=== PATIENT | male | born 1960 | race African-American/Black ===

== ENCOUNTER 2016-11-28 05:17 | Inpatient (IN) ==
[2016-11-19 09:29] LABS: Basophils # 0.1 10*3/uL (0.0-0.2); Basophils % 1.1 % (0.0-0.8); Eosinophils # 0.1 10*3/uL (0.0-0.87); Eosinophils % 1.2 % (0.00-10.9); Hematocrit 41.2 VOL% (42.0-52.0); Immature Granulocytes % 0.5 %; Immature Granulocytes Absolute 0.04 #; Lymphocytes # 2.9 10*3/uL (1.4-4.0); Lymphocytes % 36.7 % (21.2-54.2); Mean Corpuscular Hemoglobin 25 PG (27-34); Mean Corpuscular Volume 73.6 FL (87-102); Mean Platelet Volume 10.3 FL (9.6-12.0); Monocytes # 0.7 10*3/uL (0.11-0.8); Neutrophils # 4.1 10*3/uL (1.4-7.4); Neutrophils % 51.5 % (38.7-73.9); Platelet Count 198 T/CUMM (130-400); Red Cell Distribution Width 15.1 % (9.3-17.3)
--- NOTE | 2016-11-19 09:41 | EKG Report ---
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
[2016-11-19 09:56] LABS: Osmolality,Calculated 278.3 MOS/KG (273-304); Potassium 4.1 MMOL/L (3.5-5.1)
[2016-11-19 10:19] LABS: Amorphous Crystals,Urine Occasional /HPF (Few); Apearance,Urine CLEAR (Clear); Bilirubin,Urine Negative (Negative); Blood, Urine Negative (Negative); Glucose,Urine (UA) Negative (Negative); Ketones,Urine Negative (Negative); Mucus,Urine Occasional /LPF (Occasional); Nitrite,Urine Negative (Negative); Protein,Urine Negative; RBC,Urine 1 /HPF (0-4); Squamous Epithelial Cell,Urine Occasional /HPF (0-10); Urine Color Yellow (Yellow); Urine Specific Gravity 1.015 (1.001-1.035); Urine Urobilinogen < 2.0 EU/DL (0.2-1.0); WBC,Urine 1 /HPF (0-6)
[2016-11-28] MEDS ORDERED: FAMOTIDINE 20 MG TABLET PO ONE (06:00)
[2016-11-28] MEDS ORDERED: LORazepam 1 MG TABLET PO ONE (06:00)
[2016-11-28] MEDS ORDERED: SODIUM PHOSPHATE ENEMA 133 ML BOTTLE RECTAL ONE ×2 (06:05→07:00)
[2016-11-28] MEDS ORDERED: cefTRIAXone 1,000 MG VIAL ONE (06:05)
[2016-11-28] MEDS ORDERED: SODIUM CHLORIDE 0.9% 100 ML IV ONE (06:05)
[2016-11-28] MEDS ORDERED: ALVIMOPAN 12 MG CAPSULE ONE (06:05)
[2016-11-28] MEDS: LACTATED RINGERS 1,000 ML IV SCH ×3 (06:40→12:01)
[2016-11-28] MEDS ORDERED: LORazepam 1 MG TABLET ONE (06:42)
[2016-11-28] MEDS ORDERED: FAMOTIDINE 20 MG TABLET ONE (06:42)
[2016-11-28] MEDS ORDERED: cefTRIAXone 1,000 MG in SODIUM CHLORIDE 0.9% 100 ML IV ONE (07:00)
[2016-11-28] MEDS ORDERED: ALVIMOPAN 12 MG CAPSULE PO ONE (07:00)
[2016-11-28] MEDS ORDERED: LIDOCAINE 100 MG/5 ML SYRINGE ONE (07:05)
[2016-11-28] MEDS ORDERED: ONDANSETRON 4 MG/2 ML VIAL ONE ×2 (07:05→11:38)
[2016-11-28] MEDS ORDERED: ROCURONIUM 100 MG/10 ML VIAL IV ONE (07:05)
[2016-11-28] MEDS ORDERED: PROPOFOL 200 MG/20 ML VIAL IV ONE (07:05)
[2016-11-28 08:07] LABS: Apearance,Urine CLEAR (Clear); Bilirubin,Urine Negative (Negative); Blood, Urine Moderate mg/dL (Negative); Glucose,Urine (UA) Negative (Negative); Ketones,Urine Negative (Negative); Nitrite,Urine Negative (Negative); Protein,Urine Negative; RBC,Urine 13 /HPF (0-4); Urine Color Straw (Yellow); Urine Specific Gravity 1.003 (1.001-1.035); Urine Urobilinogen < 2.0 EU/DL (0.2-1.0); WBC,Urine 4 /HPF (0-6)
[2016-11-28] MEDS ORDERED: ONDANSETRON 4 MG/2 ML VIAL IV PRN ×2 (10:43→11:42)
--- NOTE | 2016-11-28 10:57 | Operative Note ---
Date of procedure: 11/28/16 Pre-op diagnosis: Prostate cancer Post-op diagnosis: same Procedure: 56-year-old gentleman with moderate volume intermediate risk carcinoma prostate. He is elected to undergo robotic radical prostatectomy. This procedure was explained at length and in detail. Risks, complications, outcomes , sequelae, prognosis and alternative therapy was discussed. Patient understood this and agreed to proceed. Patient is brought to the operative suite placed in table the securing padding and given a general endotracheal anesthetic. He is then secured to the table in the usual fashion and placed in low lithotomy position. He is then prepared and draped in the usual sterile manner. 22 Divehi Reynoso was inserted and the bladder left to gravity drainage. Inflations the patient is then placed in Trendelenburg position. Small incision great above the umbilicus. Towel clips were used to tent the abdomen up and a Veress needle was used to huang the abdominal wall. This was confirmed with the to click and saline drop test. Pneumoperitoneum was obtained. After about 2-1/2-3 L the Veress needle was then removed. 8 mm camera trocar was then placed and the camera was inserted. And inspection the intra-abdominal contents revealed no bowel injury or vascular injury from access. Another 8 mm port is placed about 8-10 cm lateral on both sides. These were done under direct vision. And another was placed lateral to the third arm on the right for fourth arm. That again was placed under direct vision. Robot was then docked I broke scrub and went to the console. [place] bipolar forceps in the left and monopolar scissors in the right a posterior approach was begun. Very small pelvis. Very tight cul-de-sac. Been incision was made in the anterior cul-de-sac and dissection was down to the vas deferens. These were clipped and divided. The seminal vesicles were divided out. Care was taken using minimal cautery as this is a nerve sparing technique. A window in Denonvilliers fascia was then created. Attention was then directed to creating the bladder flap. Incision is created lateral to the median umbilical ligaments on both sides and the ligaments were then divided and cauterized. The bladder flap was developed sharply and bluntly. Endopelvic fascia was identified. There was a large amount of levator perforating veins that were fairly large size on the patient's right side these were teased out. And lightly cauterized with bipolar. Left side had some veins but not near what was done on the right side. Puboprostatic ligaments were divided. The notch between the prostate and urethra was identified. A #1 Vicryl was used to ligate the dorsal venous complex. Attention was then directed the bladder neck. With bunching of the tissue in the midline and light traction on the Reynoso the junction was identified. This was initially incised with cautery and then using sharp dissection this was done down to the bladder neck. Longitudinal fibers were identified and the bladder neck was entered and drained. Reynoso catheter was deflated and pulled back slightly. Bladder neck was slightly open in the posterior bladder neck was then incised. The fourth arm was then used to pull up the prostate with progress. Remaining attachments anteriorly were taken down. Pedicles were ligated with hemoclips and divided. Dissection was continued posteriorly where the seminal vesicles and vas deferens were then pulled out. On both sides the lateral prostatic fascia of the prostate was incised. And then the nerve bundles were then dissected off the prostate. On the right side the fascia was very thin and the base was more adherent so at this point I elected that it would be almost impossible to spare the nerves of the nerve was taken. On the right side the vessel sealer was then used to take down the pedicle down to the apex. On the left side the pedicles were taken out with clips and divided no nerve was spared. Posterior prostate was dissected off the rectum sharply without difficulty. Attention was directed to the apex. With light traction on the prostate dorsal venous complex incised. Dissection was continued to the urethra again no nerve on the right but on the left the nerve was out laterally and the urethra was incised. The Reynoso cath was pulled back and posterior urethra was incised. The remaining apical attachments were divided sharply. Prostate and seminal vesicles attached were then placed in a specimen bag. Attention was directed to the nose. The adventitia the external iliac vein was entered jeffy tissue swept down the obturator fossa. The obturator nerve was identified and kept in view at all times and not injured. Jeffy package was scant on the right side we had a few more nodes on the left but these were then gently avulsed out with light traction. No cautery was necessary. The nerve was again seen on both sides not injured. These were sent separately for pathologic examination. A 2-0 Vicryl was used approximate the posterior urethra to the posterior bladder neck. The anastomosis was then provided with a running barbed 3-0 suture. Begun at 6 o'clock position outside in and running up from the 5 to 1: 00 and 7 to 11 o'clock position. A new to silicone Reynoso was then inserted and 12 these were placed in the balloon. Catheter was irrigated and this was a watertight anastomosis. The suture was then tied securely the pneumoperitoneum was then dropped to 0 and there was no significant bleeding. The robot was undocked. Trochars were removed. I re-scrubbed came to the field. The assistance port was incised slightly to facilitate remove the specimen. The muscles were divided with cautery. The specimen bag was removed to contain his prostate and seminal vesicles. This wound was irrigated hemostasis checked with cautery and this wound was closed with running 0 Monocryl. All wounds were irrigated and drained and hemostasis was then checked with cautery and the skin was closed with skin clips on all wounds. Reynoso catheter was left to gravity drainage secured to the upper thigh. Sterile dressings were placed on the wound. Patient tolerated this procedure extremely well was awakened general anesthesia and sent to the recovery room in stable condition. All sponge, needle and instrument counts correct 2. Implants: 22 silicone Reynoso Anesthesia: GETA Surgeon / Physician: Mani Barrera Estimated blood loss: other (150cc) Specimens: other (Prostate with seminal vesicles, bilateral obturator nodes) Condition: stable Disposition: PACU Results - Labs CBC & BMP: 11/19/16 09:23 11/19/16 09:23 Discharge Plan - Discharge Medications No Action Losartan [Cozaar] 50 mg PO DAILY - Follow Up or Referral - Forms/Instructions
[2016-11-28] MEDS ORDERED: MEPERIDINE 25 MG/1 ML VIAL ONE (11:00)
--- NOTE | 2016-11-28 11:09 | Anesthesia Post-Op ---
Anesthesia Post OP - Post Ansesthetic Evaluation Patient seen in post op: Yes Resp: within normal limits CV: within normal limits Mental: within normal limits Temp: within normal limits Wlhj-Nv-Rmvhiwmxa: within normal limits Nausea and Vomiting: within normal limits Pain: within normal limits
[2016-11-28] MEDS ORDERED: SEVOFLURANE 1 UNIT/15 MINUTE INH ONE (11:12)
[2016-11-28] MEDS ORDERED: fentaNYL 100 MCG/2 ML VIAL ONE (11:12)
[2016-11-28] MEDS ORDERED: LACTATED RINGERS 1,000 ML IV ONE (11:12)
[2016-11-28] MEDS ORDERED: MIDAZOLAM 2 MG/2 ML VIAL ONE (11:12)
[2016-11-28] MEDS ORDERED: ACETAMINOPHEN 1,000 MG/100 ML VIAL IV ONE (11:13)
[2016-11-28] MEDS ORDERED: HYDROmorphone PCA 30 MG/30 ML SYRINGE IV ONE (11:22)
[2016-11-28] MEDS: HYDROmorphone 2 MG/1 ML VIAL IV PRN ×2 (11:35→11:50)
[2016-11-28] MEDS ORDERED: HYDROmorphone 2 MG/1 ML VIAL ONE (11:38)
[2016-11-28] MEDS: HYDROmorphone PCA 30 MG/30 ML SYRINGE IV SCH (11:40)
[2016-11-28] MEDS ORDERED: ALBUTEROL/IPRATROPIUM 3 ML NEB RESP TX ONE (11:43)
--- NOTE | 2016-11-28 15:19 | Pulmonology Progress Note ---
Pulmonary - PN: Subj Interval history: The patient is a 56-year-old black man that came in today and had a robotic radical prostatectomy. Patient had a history of hypertension and is a smoker and has had problems with substance abuse in the past. He was fairly stable prior to surgery and came in today. He had no problems with anesthesia and he is doing well postop. He is arousable and looks reasonably comfortable now. He is not having any respiratory difficulties. His blood pressure and heart rate have been stable. Exam (Progress Note) - Constitutional Vitals: Period Temp Pulse Resp BP Sys/Bahena Pulse Ox Last 24 Hr 97.1 F-98.0 F 58-86 16-20 147-188/82-98 96-100 General appearance: normal weight, no acute distress, other (He looks comfortable lying in bed.) - Head Head exam: Present: normal inspection, normocephalic - Eye Eye exam: Present: EOMI. Absent: scleral icterus Pupils: Present: KAITLIN - ENT ENT exam: Present: normal exam - Neck Neck exam: Present: normal inspection. Absent: lymphadenopathy, thyromegaly - Respiratory Respiratory exam: Present: clear to auscultation bilaterally. Absent: wheezes - Cardiovascular Cardiovascular exam: Present: regular rate and rhythm. Absent: gallop, systolic murmur - GI/Abdominal GI/Abdominal exam: Present: normal bowel sounds, tenderness (He is tender in the lower abdomen), soft. Absent: organomegaly - Extremities Exam Extremities exam: Absent: calf tenderness, edema - Neurological Exam Neurological exam: Present: alert, oriented X3 - Psychiatric Psychiatric exam: Present: normal affect - Skin Skin exam: Present: warm, dry Results - Labs CBC & BMP: 11/19/16 09:23 11/19/16 09:23 Assessment and Plan (1) Prostate cancer Status: Acute Assessment and plan: The patient has prostate cancer and comes in for surgery today. He is doing fairly well postop now. Current Visit: Yes (2) History of radical prostatectomy Status: Acute Assessment and plan: The patient had a radical prostatectomy today and did well with anesthesia. Current Visit: Yes (3) Hypertension Status: Acute Assessment and plan: The patient has mild systolic hypertension but is doing fairly well so far. Current Visit: Yes (4) Smoker Status: Acute Assessment and plan: He certainly needs to stop smoking. He is not having any breathing problem so far. Current Visit: Yes
[2016-11-28] MEDS: DEXTROSE 5% NACL 0.45% 1,000 ML IV SCH ×2 (16:40→21:36)
--- NOTE | 2016-11-28 17:40 | Urology Progress Note ---
Urology - PN: Subj Interval history: Postop check. Patient is awake and alert. Urine is clearing. Vital signs are stable. Patient is stable. Exam - Constitutional Vitals: Period Temp Pulse Resp BP Sys/Bahena Pulse Ox Last 24 Hr 97.1 F-99.7 F 58-86 16-20 107-188/71-98 95-100 Results - Labs CBC & BMP: 11/19/16 09:23 11/19/16 09:23
[2016-11-28] MEDS: LACTULOSE 20 GM/30 ML UDCUP PO SCH (21:36)
[2016-11-28] MEDS: ALVIMOPAN 12 MG CAPSULE PO SCH (21:36)
[2016-11-29] MEDS: DEXTROSE 5% NACL 0.45% 1,000 ML IV SCH (06:26)
[2016-11-29] MEDS: LACTULOSE 20 GM/30 ML UDCUP PO SCH ×2 (08:52→20:49)
[2016-11-29] MEDS: ALVIMOPAN 12 MG CAPSULE PO SCH ×2 (08:52→20:49)
[2016-11-29] MEDS: LOSARTAN 50 MG TABLET PO SCH (08:52)
--- NOTE | 2016-11-29 08:54 | Pulmonology Progress Note ---
Pulmonary - PN: Subj Interval history: The patient is a 56-year-old black man that came in and had a robotic radical prostatectomy. Patient had a history of hypertension and is a smoker and has had problems with substance abuse in the past. He was fairly stable prior to surgery and came in and did well with surgery. Today he looks like he feels better. His abdomen is still sore but he is moving around a little better. He is not having any trouble with his breathing. He is moving his legs okay. His urine is clearing nicely. Overall he looks like he is doing well. Exam (Progress Note) - Constitutional Vitals: Period Temp Pulse Resp BP Sys/Bahena Pulse Ox Last 24 Hr 97.1 F-99.8 F 61-86 16-20 107-188/71-98 88-100 Exam: General appearance: normal weight, no acute distress (The patient is alert and comfortable and in no distress.) - Head Head exam: Present: normal inspection, normocephalic - Eye Eye exam: Present: EOMI. Absent: scleral icterus Pupils: Present: KAITLIN - ENT ENT exam: Present: normal exam - Neck Neck exam: Absent: lymphadenopathy, thyromegaly - Respiratory Respiratory exam: Present: He has fairly good breath sounds bilaterally and is not really wheezing any. His lungs sound better. He does not have any significant rales now. - Cardiovascular Cardiovascular exam: Present: regular rate and rhythm. Absent: gallop, systolic murmur - GI/Abdominal GI/Abdominal exam: Present: normal bowel sounds, soft. He is still a little tender. - Extremities Exam Extremities exam: Absent: calf tenderness, edema, he has no signs of phlebitis. - Back Exam Back exam: Present: normal inspection - Neurological Exam Neurological exam: Present: alert, oriented X3, CN II-XII intact. Absent: motor sensory deficit - Psychiatric Psychiatric exam: Present: normal affect - Skin Skin exam: Present: warm, dry Results - Labs CBC & BMP: 11/19/16 09:23 11/19/16 09:23 Assessment and Plan (1) Prostate cancer Status: Acute Assessment and plan: The patient has prostate cancer and had a radical prostatectomy yesterday. He is doing well postop. Current Visit: Yes (2) History of radical prostatectomy Status: Acute Assessment and plan: The patient had a radical prostatectomy and has not had any problems. He is doing well postop. Current Visit: Yes (3) Hypertension Status: Acute Assessment and plan: The patient has mild systolic hypertension but his blood pressure is doing well today. Current Visit: Yes (4) Smoker Status: Acute Assessment and plan: He certainly needs to stop smoking. He is not having any breathing problem so far. Current Visit: Yes
[2016-11-29] MEDS ORDERED: oxyCODONE/ACETAMINOPHEN 5-325 MG TABLET PO PRN (11:46)
--- NOTE | 2016-11-29 11:47 | Urology Progress Note ---
Urology - PN: Subj Interval history: Patient is doing well urine is clear. Abdomen is soft. He is tolerating his diet which we are advancing. Pathology is pending. Blood work looks good. 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 Exam - Constitutional Vitals: Period Temp Pulse Resp BP Sys/Bahena Pulse Ox Last 24 Hr 97.1 F-99.8 F 68-82 16-20 107-187/71-98 88-99 Results - Labs CBC & BMP: 11/19/16 09:23 11/19/16 09:23
[2016-11-29] MEDS: HYDROmorphone PCA 30 MG/30 ML SYRINGE IV SCH (14:04)
[2016-11-30] MEDS: ALVIMOPAN 12 MG CAPSULE PO SCH (09:16)
[2016-11-30] MEDS: LACTULOSE 20 GM/30 ML UDCUP PO SCH (09:16)
[2016-11-30] MEDS: LOSARTAN 50 MG TABLET PO SCH (09:17)
--- NOTE | 2016-11-30 09:19 | Pulmonology Progress Note ---
Pulmonary - PN: Subj Interval history: The patient is a 56-year-old black man that came in and had a robotic radical prostatectomy. Patient had a history of hypertension and is a smoker and has had problems with substance abuse in the past. He was fairly stable prior to surgery and came in and did well with surgery. He is sitting up today and moving around better. He says his abdominal pain is better. He says he had a bowel movement and is eating okay. He has good urine output that is fairly clear. He does not have any breathing problems. Overall he is doing very well. Exam (Progress Note) - Constitutional Vitals: Period Temp Pulse Resp BP Sys/Bahena Pulse Ox Last 24 Hr 98.5 F-99.4 F 67-82 16-20 142-166/77-87 92-96 Exam: General appearance: normal weight, no acute distress (The patient is alert and comfortable and in no distress. He is sitting up in a chair and looks good.) - Head Head exam: Present: normal inspection, normocephalic - Eye Eye exam: Present: EOMI. Absent: scleral icterus Pupils: Present: KAITLIN - ENT ENT exam: Present: normal exam - Neck Neck exam: Absent: lymphadenopathy, thyromegaly - Respiratory Respiratory exam: Present: He has fairly good breath sounds bilaterally and is not really wheezing any. His lungs sound better. He does not have any significant rales now. - Cardiovascular Cardiovascular exam: Present: regular rate and rhythm. Absent: gallop, systolic murmur - GI/Abdominal GI/Abdominal exam: Present: normal bowel sounds, soft. His abdominal tenderness is better. - Extremities Exam Extremities exam: Absent: calf tenderness, edema, he has no signs of phlebitis. - Back Exam Back exam: Present: normal inspection - Neurological Exam Neurological exam: Present: alert, oriented X3, CN II-XII intact. Absent: motor sensory deficit - Psychiatric Psychiatric exam: Present: normal affect - Skin Skin exam: Present: warm, dry Results - Labs CBC & BMP: 11/19/16 09:23 11/19/16 09:23 Assessment and Plan (1) Prostate cancer Status: Acute Assessment and plan: The patient has prostate cancer and had a radical prostatectomy. He is doing well postop and has not had any problems. He can probably go home soon. Current Visit: Yes (2) History of radical prostatectomy Status: Acute Assessment and plan: The patient had a radical prostatectomy and has not had any problems. He is doing well postop. Current Visit: Yes (3) Hypertension Status: Acute Assessment and plan: The patient has mild systolic hypertension but his blood pressure is doing well today. Overall he is stable hemodynamically. Current Visit: Yes (4) Smoker Status: Acute Assessment and plan: He certainly needs to stop smoking. He is not having any breathing problem so far. Current Visit: Yes
[2016-11-30 11:44] VITALS: BP 152/88
--- NOTE | 2016-11-30 12:38 | Discharge Summary ---
Hospital Course - Hospital Course Hospital Course: 56-year-old gentleman localized carcinoma prostate was admitted for robotic laparoscopic radical prostatectomy. He is done well. Blood work is normal. His wounds are healing well. He is tolerating regular diet. He has had a normal bowel movement. His pathology report is pending. Dr. Moreno saw him in consultation and his hypertension and other medical issues remained stable. We will discharge and follow-up in the office in 2 weeks. He will come see my nurse in about a week to remove the catheter. Discharge medications will be Percocet 5 mg, #20, 1-2 every 4-6 hours as needed pain, no refills. - Time spent with patient Time with patient DS: Greater than 30 minutes Discharge Plan - Discharge Data Disposition: Disch To Home/Self Care Condition at Discharge: Stable Discharge Diet: regular diet Activity: no lifting, other (Minimal walking on flat ground is encouraged) Hygiene: no restrictions Weight Bearing at Discharge: full weight bearing Driving: not until seen by doctor Contact your physician if you experience:: fever over 101, Shortness of breath, Bleeding - Discharge Medications New oxyCODONE/ACETAMINOPHEN 5-325 [Percocet 5-325] 1 - 2 tablet PO Q4H PRN #0 tablet PRN Reason: Pain Moderate (4-7) Continue Losartan [Cozaar] 50 mg PO DAILY - Follow Up or Referral - Forms/Instructions Exam - Constitutional Vitals: Period Temp Pulse Resp BP Sys/Bahena Pulse Ox Last 24 Hr 97.3 F-99.4 F 61-82 16-20 142-171/77-96 92-98 DS: Provider Date of admission: 11/28/16 05:17 Primary care physician: . No PCP Attending physician on admission: Mani Barrera MD Consults: 11/28/16 10:46 Consult to Physician [CONS] Routine Comment: Prostate cancer, hypertension Consulting Provider: Baljeet Moreno Consult to Specialist Group: Urology When should Consulting Provider be notified: Now Person Notified: eva Date Notified: 11/28/16 Time Notified: 11:54 Consult Notification Comment: left message on Asher vm to call me back @11:54 called back again @12:11 didn't get answer left message again@2:30 Talked to Eva at 1450 Dr. Moreno here 11/28/16 @9629 to see pt Discharging clinician: Mani Barrera MD
== END 2016-11-30 14:58 | disposition home or self-care (01) | DRG 708 ==
LOC: N.OR 05:17 → N.SDSINP 05:18 → EDSTATUS 07:30 → N.5E 07:49 → N.SDSINP 19:33 → N.5E 19:35
PROVIDERS: ADMIT Urology; ATTEND Urology

== ENCOUNTER 2022-07-26 15:48 | Inpatient (IN) ==
[2022-07-26] MEDS ORDERED: SODIUM CHLORIDE 0.9% 1,000 ML IV STA (19:24)
[2022-07-26] MEDS ORDERED: METOCLOPRAMIDE 10 MG/2 ML VIAL IV STA (19:24)
[2022-07-26] MEDS ORDERED: ONDANSETRON 4 MG/2 ML VIAL IV STA (19:24)
[2022-07-26] MEDS ORDERED: PANTOPRAZOLE 40 MG VIAL IV STA (19:24)
[2022-07-26 19:52] LABS: Basophils # 0.1 10*3/uL (0.0-0.2); Basophils % 0.6 % (0.0-0.8); Eosinophils % 0.3 % (0.00-10.9); Hematocrit 52.3 VOL% (42.0-52.0); Hemoglobin 17.9 GM/DL (14.0-18.0); Immature Granulocytes % 0.6 %; Immature Granulocytes Absolute 0.07 #; Lymphocytes # 2.9 10*3/uL (1.4-4.0); Lymphocytes % 23.9 % (21.2-54.2); Mean Corpuscular HGB Conc 34.2 GM/DL (32-36); Mean Corpuscular Volume 72.2 FL (87-102); Mean Platelet Volume 11.2 FL (9.6-12.0); Monocytes % 8.4 % (1.7-12.7); Neutrophils % 66.2 % (38.7-73.9); Platelet Count 190 T/CUMM (130-400); Red Blood Count 7.24 MC/CUMM (3.8-5.5); Red Cell Distribution Width 17.1 % (9.3-17.3); White Blood Count 12.2 T/CUMM (4-12)
[2022-07-26 20:09] LABS: Bilirubin,Total 0.8 MG/DL (0.20-1.00); Calcium 10.2 MG/DL (8.5-10.1); Osmolality,Calculated 266.1 MOS/KG (273-304); Potassium 4.3 MMOL/L (3.5-5.1); Total Protein 9.1 G/DL (6.4-8.2)
[2022-07-26 20:44] LABS: RBC,Urine 2 /HPF (0-4)
[2022-07-26 20:45] LABS: Bilirubin,Urine Small mg/dL (Negative); Blood, Urine Negative (Negative); Glucose,Urine (UA) Negative (Negative); Ketones,Urine 40 mg/dL (Negative); Nitrite,Urine Negative (Negative); Protein,Urine 30 mg/dL (Negative); Urine Appearance Clear (Clear); Urine Color Yellow (Yellow)
[2022-07-26] MEDS ORDERED: MORPHINE 2 MG/1 ML SYRINGE IV PRN (22:09)
[2022-07-26] MEDS ORDERED: ONDANSETRON 4 MG/2 ML VIAL IV PRN (22:09)
[2022-07-26] MEDS ORDERED: ZALEPLON 5 MG CAPSULE PO PRN (22:09)
[2022-07-26] MEDS ORDERED: ACETAMINOPHEN 325 MG TABLET PO PRN (22:09)
[2022-07-26] MEDS ORDERED: hydrALAZINE 20 MG/1 ML VIAL IV PRN (22:09)
[2022-07-26] MEDS ORDERED: NICOTINE 21 MG/24 HR PATCH TRANSDERM PRN (22:09)
[2022-07-27] MEDS: DEXT 5% NACL 0.9% KCL 20 MEQ 20 MEQ/1,000 ML BAG IV SCH ×4 (02:30→20:53)
[2022-07-27 06:22] LABS: Basophils # 0.1 10*3/uL (0.0-0.2); Basophils % 0.8 % (0.0-0.8); Eosinophils # 0.3 10*3/uL (0.0-0.87); Eosinophils % 2.7 % (0.00-10.9); Hematocrit 47.5 VOL% (42.0-52.0); Hemoglobin 15.9 GM/DL (14.0-18.0); Immature Granulocytes % 0.6 %; Immature Granulocytes Absolute 0.06 #; Lymphocytes # 3.2 10*3/uL (1.4-4.0); Lymphocytes % 30.3 % (21.2-54.2); Mean Corpuscular HGB Conc 33.5 GM/DL (32-36); Mean Corpuscular Volume 72.9 FL (87-102); Monocytes % 9.7 % (1.7-12.7); Neutrophils % 55.9 % (38.7-73.9); Platelet Count 180 T/CUMM (130-400); Red Blood Count 6.52 MC/CUMM (3.8-5.5); Red Cell Distribution Width 15.6 % (9.3-17.3); White Blood Count 10.6 T/CUMM (4-12)
[2022-07-27 06:54] LABS: Calcium 9.4 MG/DL (8.5-10.1); Osmolality,Calculated 271.7 MOS/KG (273-304); Potassium 3.5 MMOL/L (3.5-5.1)
[2022-07-27] MEDS ORDERED: FOLIC ACID 5 MG/1 ML VIAL IM SCH (09:00)
[2022-07-27] MEDS ORDERED: PANTOPRAZOLE 40 MG VIAL IV SCH (09:00)
[2022-07-27] MEDS ORDERED: THIAMINE 200 MG/2 ML VIAL IM SCH (09:00)
[2022-07-27] MEDS: THIAMINE 100 MG TABLET PO SCH (11:43)
[2022-07-27] MEDS: FOLIC ACID 1 MG TABLET PO SCH (11:43)
[2022-07-27] MEDS: HEPARIN 5,000 UNIT/1 ML VIAL SUBCUT SCH ×2 (11:46→20:53)
[2022-07-27] MEDS: lisinopriL 20 MG TABLET PO SCH (16:52)
[2022-07-27] MEDS: PANTOPRAZOLE 40 MG VIAL IV SCH (20:53)
[2022-07-28] MEDS: DEXT 5% NACL 0.9% KCL 20 MEQ 20 MEQ/1,000 ML BAG IV SCH (04:37)
[2022-07-28 06:44] LABS: Basophils # 0.1 10*3/uL (0.0-0.2); Basophils % 0.9 % (0.0-0.8); Eosinophils # 0.5 10*3/uL (0.0-0.87); Eosinophils % 6.7 % (0.00-10.9); Hematocrit 45.9 VOL% (42.0-52.0); Hemoglobin 15.3 GM/DL (14.0-18.0); Immature Granulocytes % 0.5 %; Immature Granulocytes Absolute 0.04 #; Lymphocytes # 2.8 10*3/uL (1.4-4.0); Mean Corpuscular HGB Conc 33.3 GM/DL (32-36); Mean Corpuscular Volume 74.8 FL (87-102); Mean Platelet Volume 11.2 FL (9.6-12.0); Monocytes # 0.7 10*3/uL (0.11-0.8); Monocytes % 9.8 % (1.7-12.7); Neutrophils % 45.1 % (38.7-73.9); Platelet Count 167 T/CUMM (130-400); Red Blood Count 6.14 MC/CUMM (3.8-5.5); Red Cell Distribution Width 15.8 % (9.3-17.3); White Blood Count 7.6 T/CUMM (4-12)
[2022-07-28 07:03] LABS: Albumin 2.9 G/DL (3.4-5.0); Bilirubin,Total 0.8 MG/DL (0.20-1.00); Calcium 9.1 MG/DL (8.5-10.1); Potassium 3.6 MMOL/L (3.5-5.1); Risk Ratio 3.09; Total Protein 6.5 G/DL (6.4-8.2); VLDL Cholesterol 23.4 MG/DL
[2022-07-28] MEDS: PANTOPRAZOLE 40 MG VIAL IV SCH (08:03)
[2022-07-28] MEDS: lisinopriL 20 MG TABLET PO SCH (08:03)
[2022-07-28] MEDS: THIAMINE 100 MG TABLET PO SCH (08:03)
[2022-07-28] MEDS: FOLIC ACID 1 MG TABLET PO SCH (08:03)
[2022-07-28] MEDS: HEPARIN 5,000 UNIT/1 ML VIAL SUBCUT SCH (11:11)
[2022-07-28 12:21] VITALS: BP 160/89
== END 2022-07-28 15:02 | disposition home or self-care (01) | DRG 440 ==
LOC: N.ED 15:48 → N.2E 22:09
PROVIDERS: ADMIT Family Medicine; ATTEND Family Medicine